=== PATIENT | male | born 1950 | race Caucasian/White ===

== ENCOUNTER 2020-03-27 14:12 | Inpatient (IN) | payer MEDICARE, OTHER ==
[~2020-03-27] VITALS: Ht 177.8 cm; Wt 110.9 kg
[2020-03-27 14:41] LABS: BASOPHILS # (AUTO) 0.1 X10'3 (0-0.2); BASOPHILS % (AUTO) 0.7 % (0-1); EOSINOPHILS # (AUTO) 0.3 X10'3 (0-0.9); EOSINOPHILS % (AUTO) 3.2 % (0-6); HEMOGLOBIN 17.2 g/dl (14.0-17.9); LYMPHOCYTES # (AUTO) 1.6 X10'3 (1.1-4.8); LYMPHOCYTES % (AUTO) 18.6 % (21-51); MEAN CORPUSCULAR HEMOGLOBIN 32.5 PG (27.0-31.0); MEAN CORPUSCULAR HGB CONC 34.3 g/dL (33.0-36.5); MEAN CORPUSCULAR VOLUME 94.8 FL (78-98); MEAN PLATELET VOLUME 8.5 FL (7.4-10.4); MONOCYTES # (AUTO) 0.8 X10'3 (0-0.9); MONOCYTES % (AUTO) 8.9 % (2-12); NEUTROPHILS # (AUTO) 5.9 X10'3 (1.8-7.7); NEUTROPHILS % (AUTO) 68.6 % (42-75); PLATELET COUNT 167 X10'3 (140-440); RED BLOOD COUNT 5.28 X10'6 (4.70-6.10); RED CELL DISTRIBUTION WIDTH 13.2 % (11.5-14.5); WHITE BLOOD COUNT 8.7 X10'3 (4.5-11.0)
[2020-03-27 14:52] LABS: PARTIAL THROMBOPLASTIN TIME 29 SECONDS (22-32)
[2020-03-27] MEDS ORDERED: SOTA80TA73 PO (14:55)
[2020-03-27] MEDS ORDERED: ASPI-1265 PO (14:55)
[2020-03-27 15:04] LABS: ALANINE AMINOTRANSFERASE 53 U/L (12-78); ALBUMIN 3.9 G/DL (3.4-5.0); ALBUMIN/GLOBULIN RATIO 1.1 (1.1-1.5); ALKALINE PHOSPHATASE 73 IU/L (46-116); ANION GAP 8 (8-16); ASPARTATE AMINO TRANSFERASE 27 U/L (10-37); BILIRUBIN,TOTAL 0.9 MG/DL (0.1-1.0); BLOOD UREA NITROGEN 22 MG/DL (7-18); BUN/CREATININE RATIO 20.6 (5.4-32.0); CALCIUM 9.2 MG/DL (8.5-10.1); CHLORIDE 107 MMOL/L (99-107); CREATININE 1.07 MG/DL (0.60-1.10); GLUCOSE 99 MG/DL (70-104); POTASSIUM 4.4 MMOL/L (3.5-5.1); SODIUM 142 MMOL/L (135-145); TOTAL CARBON DIOXIDE 26.8 MMOL/L (24-32); TOTAL PROTEIN 7.4 G/DL (6.4-8.2); eGFR 68 ML/MIN
[2020-03-27 15:06] LABS: TROPONIN I < 0.04 NG/ML (0.0-0.05)
[2020-03-27] MEDS ORDERED: aspirin 325mg tablet PO ONE (15:30)
[2020-03-27] MEDS ORDERED: magnesium hydroxide 30ml (MOM) UD suspension PO PRN (15:45)
[2020-03-27] MEDS ORDERED: morphine 2 MG/ML inj. syringe IV PRN ×2 (15:45)
[2020-03-27] MEDS ORDERED: acetaminophen 325mg tablet PO PRN ×2 (15:45)
[2020-03-27] MEDS ORDERED: HYDROcodone/acetaminophen 5mg/325mg tablet PO PRN (15:45)
[2020-03-27] MEDS ORDERED: mag hydrox/Alum hydrox/simeth 30ml oral suspension PO PRN (15:45)
[2020-03-27] MEDS ORDERED: ondansetron/PF 4mg/2ml inj IV PRN (15:45)
[2020-03-27] MEDS ORDERED: APIX5TAB3 PO (16:13)
[2020-03-27] MEDS ORDERED: iohexol 350MG/ML 100ml bottle IV ONE (16:26)
[2020-03-27 16:32] LABS: CHOL/HDL RATIO 5.4 (0.00-4.99); CHOLESTEROL 182 MG/DL (0-200); HDL CHOLESTEROL 34 MG/DL (35-60); LDL CHOLESTEROL 112 MG/DL (50-100); TRIGLYCERIDES 268 MG/DL (20-135)
[2020-03-27 17:06] LABS: HEMOGLOBIN A1C 5.5 % (4.5-6.2)
--- NOTE | 2020-03-27 18:15 | NUR ---
RECEIVED PATIENT TO ROOM 4023B IN STABLE CONDITION.
[2020-03-27 18:30] VITALS: BP 172/90
--- NOTE | 2020-03-27 20:08 | NUR ---
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 PATIENT THINKS SURGEON WANTED HIM TO BE OFF BLOOD THINNERS FOR "MORE THEN TWO WEEKS" AFTER SURGERY. NEEDS CLARIFICATION IN AM WITH MD WHO DID SURGERY IF/WHEN PATIENT CAN RESTART ELIQUIS.
[2020-03-28 06:00] VITALS: BP 132/33
[2020-03-28 06:43] LABS: BASOPHILS % (AUTO) 0.6 % (0-1); EOSINOPHILS # (AUTO) 0.3 X10'3 (0-0.9); HEMOGLOBIN 16.4 g/dl (14.0-17.9); LYMPHOCYTES # (AUTO) 1.5 X10'3 (1.1-4.8); MEAN PLATELET VOLUME 8.9 FL (7.4-10.4); MONOCYTES # (AUTO) 0.6 X10'3 (0-0.9)
[2020-03-28 06:47] LABS: EOSINOPHILS % (AUTO) 3.5 % (0-6); HEMATOCRIT 47.3 % (42.0-52.0); MEAN CORPUSCULAR HEMOGLOBIN 32.6 PG (27.0-31.0); MEAN CORPUSCULAR HGB CONC 34.6 g/dL (33.0-36.5); MEAN CORPUSCULAR VOLUME 94.1 FL (78-98); NEUTROPHILS # (AUTO) 4.7 X10'3 (1.8-7.7); NEUTROPHILS % (AUTO) 66.9 % (42-75); PLATELET COUNT 144 X10'3 (140-440); RED BLOOD COUNT 5.03 X10'6 (4.70-6.10); RED CELL DISTRIBUTION WIDTH 13.5 % (11.5-14.5); WHITE BLOOD COUNT 7.1 X10'3 (4.5-11.0)
[2020-03-28 07:09] LABS: ALBUMIN 3.4 G/DL (3.4-5.0); ANION GAP 8 (8-16); BLOOD UREA NITROGEN 20 MG/DL (7-18); BUN/CREATININE RATIO 19.4 (5.4-32.0); CALCIUM 8.7 MG/DL (8.5-10.1); CHLORIDE 109 MMOL/L (99-107); CHOL/HDL RATIO 5.1 (0.00-4.99); CHOLESTEROL 163 MG/DL (0-200); CREATININE 1.03 MG/DL (0.60-1.10); GLUCOSE 102 MG/DL (70-104); HDL CHOLESTEROL 32 MG/DL (35-60); LDL CHOLESTEROL 111 MG/DL (50-100); SODIUM 142 MMOL/L (135-145); TOTAL CARBON DIOXIDE 24.8 MMOL/L (24-32); TRIGLYCERIDES 181 MG/DL (20-135); eGFR 71 ML/MIN
[2020-03-28] MEDS ORDERED: aspirin 325mg tablet, delayed-release (Ecotrin) PO SCH (08:00)
--- NOTE | 2020-03-28 09:06 | NUR ---
Paged Dr. Arnold PAGER ID: [phone] MESSAGE: [phone] Jon Too- Per tele neuro consult patient needs MRI, ESR, TSH, and PT eval. Also would you like to order a statin? Thank you Camila [phone]
--- NOTE | 2020-03-28 09:19 | NUR ---
Page sent to Dr. Vaughn PAGER ID: [phone] MESSAGE: [phone] Jon Gage- Per tele neuro consult patient needs MRI, TSH, and PT eval. Also would you like to order a statin? Thank you Camila [phone]
[2020-03-28] MEDS ORDERED: ATOR10TA PO (09:56)
[2020-03-28 10:00] VITALS: BP 148/87
--- NOTE | 2020-03-28 11:01 | NUR ---
Patient stable for discharge. Per MD Rusu patient does not need MRI. PIV removed, cannula intact. Prescription called to [facility]. Education provided to patient. Belongings gathered and sent home with patient.
--- NOTE | 2020-03-29 14:21 | NUR ---
Case Management DC follow up: spoke to pt spouseDeepthi via telephone: reports: Pt is doing okay, sentences are clearer, more defined status post- TIA: Denies acute/persistent CP, emergent general pain, SOB, resp distress, NV, vertigo, syncope, IRENE, general/concerning bruising, bleeding, fever, diaphoreses, confusion. Denies s/s stroke, FAST. Pt agreed w/no waiting, call 9-11 if s/s stroke were to arise. Verbalizes understanding of s/s that would warrant 9-11/ER visit for further evaluation/FAST stroke alert, time is of essence/pt verbalizes understanding and agreed to not wait if it happens again. Verbalizes understanding of current Rx/taking as ordered, no ase noted r/t polypharmacy. Acknowledges need to schedule/keep follow up appts w/PCP Dr Briggs conv 03/29/20, telemed conv w/PCP 03/30/20 0930. PCP advised pt to restart Eliquis MIGUELANGEL. PCP getting in touch w/Neurologist in [place], referring pt to local urologist. Dr Denis has also been contacted by pt and PCP.All questions/concerns addressed and answered at DC; Verbalizes understanding of post status after-care compliance. No further questions at this time.
== END 2020-03-28 11:00 | disposition home or self-care (01) | DRG 69 ==
LOC: ER 14:13 → ED HOLD 15:51 → ORTHO 4S 18:18
PROVIDERS: ADMIT Internal Medicine; ATTEND Internal Medicine
PROC: B0201ZZ Computerized Tomography (CT Scan) of Brain using Low Osmolar Contrast (ICD-10-PCS; principal; 2020-03-27)
DX: G45.9 Transient cerebral ischemic attack, unspecified (principal); C67.9 Malignant neoplasm of bladder, unspecified; I48.0 Paroxysmal atrial fibrillation; Z79.82 Long term (current) use of aspirin; Z79.899 Other long term (current) drug therapy; Z86.73 Personal history of transient ischemic attack (TIA), and cerebral infarction without residual deficits; Z87.891 Personal history of nicotine dependence; R31.9 Hematuria, unspecified
CPT/HCPCS: 36415; 70450; 70496; 70498; 71045; 80048; 80053; 80061; 82948; 83036; 83880; 84484; 85025; 85610; 85651; 85730; 87081; 92508; 92616; 93306; 99285; G0378; Q9967

== ENCOUNTER 2020-07-24 07:07 | Day surgery (SDC) | payer MEDICARE, OTHER ==
[2020-07-23 14:00] LABS: BASOPHILS % (AUTO) 0.5 % (0-1); EOSINOPHILS % (AUTO) 0.8 % (0-6); HEMATOCRIT 29.3 % (42.0-52.0); HEMOGLOBIN 10.4 g/dl (14.0-17.9); LYMPHOCYTES # (AUTO) 0.9 X10'3 (1.1-4.8); LYMPHOCYTES % (AUTO) 16.5 % (21-51); MEAN CORPUSCULAR HEMOGLOBIN 35.3 PG (27.0-31.0); MEAN CORPUSCULAR HGB CONC 35.4 g/dL (33.0-36.5); MEAN CORPUSCULAR VOLUME 99.6 FL (78-98); MONOCYTES # (AUTO) 0.8 X10'3 (0-0.9); NEUTROPHILS # (AUTO) 3.7 X10'3 (1.8-7.7); NEUTROPHILS % (AUTO) 68.2 % (42-75); PLATELET COUNT 174 X10'3 (140-440); RED BLOOD COUNT 2.94 X10'6 (4.70-6.10); RED CELL DISTRIBUTION WIDTH 19.9 % (11.5-14.5); WHITE BLOOD COUNT 5.4 X10'3 (4.5-11.0)
[2020-07-23 14:19] LABS: ANISOCYTOSIS 2+; PLATELET ESTIMATE NORMAL
[2020-07-23 14:21] LABS: ALBUMIN 3.7 G/DL (3.4-5.0); ANION GAP 8 (8-16); BLOOD UREA NITROGEN 30 MG/DL (7-18); BUN/CREATININE RATIO 20.4 (5.4-32.0); CALCIUM 9.3 MG/DL (8.5-10.1); CHLORIDE 106 MMOL/L (99-107); CREATININE 1.47 MG/DL (0.60-1.10); GLUCOSE 106 MG/DL (70-104); POTASSIUM 3.9 MMOL/L (3.5-5.1); SODIUM 143 MMOL/L (135-145); TOTAL CARBON DIOXIDE 29.5 MMOL/L (24-32); eGFR 47 ML/MIN
[~2020-07-24] VITALS: Ht 177.8 cm; Wt 111.8 kg
[~2020-07-24 07:07] MED LIST: ASPI-1265 PO; ATOR10TA PO; SOTA80TA73 PO
[2020-07-24 07:20] VITALS: BP 134/81
[2020-07-24] MEDS ORDERED: MIDAZolam 1mg/ml 10ml vial IV ONE (07:50)
[2020-07-24] MEDS ORDERED: diphenhydrAMINE 25mg capsule PO ONE (07:50)
[2020-07-24] MEDS ORDERED: amiodarone 150mg/dext, iso-os 100 ML IV ONE (07:50)
[2020-07-24] MEDS ORDERED: LORazepam 0.5 MG tablet PO ONE (07:50)
[2020-07-24] MEDS ORDERED: normal saline 1000ml 1,000 ML IV SCH (07:50)
[2020-07-24] MEDS ORDERED: atropine 0.1mg/ml 10ml syringe IV ONE (07:50)
[2020-07-24] MEDS ORDERED: morphine 10mg/ml inj. IV ONE (07:50)
[2020-07-24] MEDS ORDERED: UBID100C16 PO (07:51)
[2020-07-24] MEDS ORDERED: GLUC-253 (07:51)
[2020-07-24] MEDS ORDERED: PUMPKIN SEED OIL PO (07:51)
[2020-07-24] MEDS ORDERED: ATOR10TA87 PO (07:51)
[2020-07-24] MEDS ORDERED: prosvent (07:51)
[2020-07-24] MEDS ORDERED: OMEG1CAP13 PO (07:51)
[2020-07-24] MEDS ORDERED: fiber capsules PO (07:51)
[2020-07-24] MEDS ORDERED: LUTE40CA PO (07:51)
[2020-07-24] MEDS ORDERED: SOTA80TA46 PO ×2 (07:51)
[2020-07-24] MEDS ORDERED: VITA400C19 PO (07:51)
[2020-07-24] MEDS ORDERED: APIX5TAB3 PO (07:51)
[2020-07-24] MEDS ORDERED: MULT-1085 PO (07:51)
--- NOTE | 2020-07-24 10:45 | NUR ---
MD at bedside. Confirmation by pt is in Sinus Rhythm. Procedure cancelled.
== END 2020-07-24 10:50 | disposition home or self-care (01) ==
LOC: SSTAY O 07:07
PROVIDERS: ATTEND Internal Medicine Cardiovascular Disease
DX: I48.19 Other persistent atrial fibrillation (principal); Z53.8 Procedure and treatment not carried out for other reasons; I10 Essential (primary) hypertension; E78.5 Hyperlipidemia, unspecified; G47.33 Obstructive sleep apnea (adult) (pediatric); E66.9 Obesity, unspecified; Z68.35 Body mass index [BMI] 35.0-35.9, adult; Z86.73 Personal history of transient ischemic attack (TIA), and cerebral infarction without residual deficits; Z79.899 Other long term (current) drug therapy; Z79.01 Long term (current) use of anticoagulants; R06.02 Shortness of breath
CPT/HCPCS: 36415; 80048; 83880; 85008; 85025; 85610; 93005

== ENCOUNTER 2020-08-15 09:01 | Day surgery (SDC) | payer MEDICARE, OTHER ==
[2020-08-14 14:19] LABS: BASOPHILS # (AUTO) 0.1 X10'3 (0-0.2); BASOPHILS % (AUTO) 0.7 % (0-1); EOSINOPHILS # (AUTO) 0.5 X10'3 (0-0.9); EOSINOPHILS % (AUTO) 5.5 % (0-6); HEMATOCRIT 33.2 % (42.0-52.0); HEMOGLOBIN 11.7 g/dl (14.0-17.9); LYMPHOCYTES # (AUTO) 1.1 X10'3 (1.1-4.8); LYMPHOCYTES % (AUTO) 13.1 % (21-51); MEAN CORPUSCULAR HGB CONC 35.3 g/dL (33.0-36.5); MEAN CORPUSCULAR VOLUME 101.9 FL (78-98); MEAN PLATELET VOLUME 8.1 FL (7.4-10.4); MONOCYTES # (AUTO) 0.9 X10'3 (0-0.9); NEUTROPHILS # (AUTO) 6.1 X10'3 (1.8-7.7); NEUTROPHILS % (AUTO) 70.7 % (42-75); PLATELET COUNT 170 X10'3 (140-440); RED BLOOD COUNT 3.26 X10'6 (4.70-6.10); RED CELL DISTRIBUTION WIDTH 15.8 % (11.5-14.5); WHITE BLOOD COUNT 8.6 X10'3 (4.5-11.0)
[2020-08-14 14:20] LABS: ALBUMIN 3.8 G/DL (3.4-5.0); ANION GAP 9 (8-16); BLOOD UREA NITROGEN 34 MG/DL (7-18); BUN/CREATININE RATIO 20.7 (5.4-32.0); CALCIUM 8.8 MG/DL (8.5-10.1); CHLORIDE 107 MMOL/L (99-107); CREATININE 1.64 MG/DL (0.60-1.10); GLUCOSE 108 MG/DL (70-104); POTASSIUM 4.1 MMOL/L (3.5-5.1); SODIUM 141 MMOL/L (135-145); TOTAL CARBON DIOXIDE 24.6 MMOL/L (24-32); eGFR 42 ML/MIN
[2020-08-14 14:25] LABS: PARTIAL THROMBOPLASTIN TIME 27 SECONDS (22-32)
[~2020-08-15] VITALS: Ht 177.8 cm; Wt 110.7 kg
[2020-08-15] VITALS (12 sets, daily range): BP systolic 126–169; BP diastolic 75–130
[~2020-08-15 09:01] MED LIST changes: +APIX5TAB3 PO; -ASPI-1265 PO; -ATOR10TA PO; +ATOR10TA87 PO; +GLUC-253; +LUTE40CA PO; +MULT-1085 PO; +OMEG1CAP13 PO; +PUMPKIN SEED OIL PO; +SOTA80TA46 PO; -SOTA80TA73 PO; +UBID100C16 PO; +VITA400C19 PO; +fiber capsules PO; +prosvent
[2020-08-15] MEDS ORDERED: normal saline 1000ml 1,000 ML IV SCH (09:25)
[2020-08-15] MEDS ORDERED: CLINDAMYCIN/D5W 900mg/50ml 50 ML IV ONE (09:25)
[2020-08-15] MEDS ORDERED: ceFAZolin 2gm in dextrose, iso 50 ML IV ONE ×2 (09:25→09:30)
[2020-08-15] MEDS ORDERED: midazolam 2 mg/2 ml injection ONE (09:30)
[2020-08-15] MEDS ORDERED: LIDOcaine 1% W/epiNEPHrine 1:100,000 20ml vial ONE (09:30)
[2020-08-15] MEDS ORDERED: fentaNYL/PF 50MCG/1 ML 2ML syringe ONE (09:30)
[2020-08-15] MEDS ORDERED: ceFAZolin 1000mg inj ONE (09:30)
[2020-08-15] MEDS ORDERED: ASPI-12 PO (09:38)
[2020-08-15] MEDS ORDERED: HYDROcodone/acetaminophen 10/325mg tab PO PRN (12:35)
[2020-08-15] MEDS ORDERED: LORazepam 1 MG tablet PO PRN (12:35)
[2020-08-15] MEDS ORDERED: HYDROcodone/acetaminophen 5mg/325mg tablet PO PRN (12:35)
[2020-08-15] MEDS ORDERED: vancomycin/NS 1 GM ADD-VANTAGE 250 ML X 1 DOSE IV ONE (14:00)
== END 2020-08-15 17:45 | disposition home or self-care (01) ==
LOC: SSTAY O 09:01
PROVIDERS: ATTEND Internal Medicine Cardiovascular Disease
DX: I49.5 Sick sinus syndrome (principal); I10 Essential (primary) hypertension; E78.5 Hyperlipidemia, unspecified; I48.0 Paroxysmal atrial fibrillation; G47.30 Sleep apnea, unspecified; E66.9 Obesity, unspecified; Z68.35 Body mass index [BMI] 35.0-35.9, adult; H40.9 Unspecified glaucoma; M19.90 Unspecified osteoarthritis, unspecified site; N40.0 Benign prostatic hyperplasia without lower urinary tract symptoms; Z86.010 Personal history of colon polyps; Z87.442 Personal history of urinary calculi; Z86.73 Personal history of transient ischemic attack (TIA), and cerebral infarction without residual deficits; Z98.890 Other specified postprocedural states; Z79.899 Other long term (current) drug therapy; Z79.01 Long term (current) use of anticoagulants; Z87.891 Personal history of nicotine dependence; Z85.51 Personal history of malignant neoplasm of bladder
CPT/HCPCS: 33208; 36415; 71046; 80048; 85025; 85610; 85730; 99152; 99153; C1785; C1894; C1898; J0690; J2250; J3010; J3370; J7030; A4565; A4620; A6449